=== PATIENT | female | born 1985 | race Caucasian/White ===

== ENCOUNTER → 2017-02-22 | Outpatient (CLI) | payer OTHER ==
[~2017-02-22] MED LIST: PRE NATAL VITAMINS PO
[2017-02-22 11:23] LABS: BASO % 0.6 % (0.0-1.0); EOS # 0.2 10*3/uL (0.0-0.4); EOS % 2.9 % (1.0-4.0); HEMATOCRIT 38.9 % (37.0-47.0); HEMOGLOBIN 13.2 g/dl (12.0-16.0); LYMPH # 1.8 10*3/uL (1.3-4.4); LYMPH % 29.1 % (27.0-41.0); MEAN CELL VOLUME 88.2 fl (81.0-99.0); MEAN CORPUSCULAR HGB 29.9 pg (27.0-31.0); MEAN CORPUSCULAR HGB CONC 33.9 g/dl (33.0-37.0); MONO # 0.4 10*3/uL (0.1-1.0); MONO % 7.1 % (3.0-9.0); NEUT # 3.7 10*3/uL (2.3-7.9); NEUT % 60.1 % (47.0-73.0); PLATELET COUNT AUTOMATED 332 10*3/uL (130-400); RED BLOOD COUNT 4.41 10*6/uL (4.10-5.10); RED CELL DISTRI WIDTH 12.4 % (0-14.5); WHITE BLOOD COUNT 6.2 10*3/uL (4.8-10.8)
[2017-02-22 11:56] LABS: PROTHROMBIN TIME 10.2 SECONDS (9.0-12.4)
== END | disposition home or self-care (01) ==
LOC: LAB 11:07
PROVIDERS: Specialist
DX: J35.01 Chronic tonsillitis (principal)

== ENCOUNTER → 2017-03-01 | Day surgery (SDC) | payer OTHER ==
[2017-03-01] VITALS (7 sets, daily range): BP systolic 130–146; BP diastolic 74–88
[~2017-03-01] VITALS: Ht 154.9 cm; Wt 103.4 kg
[~2017-03-01] MED LIST changes: +OXYCODONE H5 MG/5 ML PO
--- NOTE | ~2017-03-01 | O ---
[place], [place] OPERATIVE NOTE NAME: SHERMAN PRITCHARD UNIT #: [id number] ROOM: DOCTOR: ALEXANDRA ANTOINE MD BIRTHDATE: [birth year] DOS: 03/01/2017 PREOPERATIVE DIAGNOSIS: Chronic tonsillitis. POSTOPERATIVE DIAGNOSIS: Chronic tonsillitis. OPERATION PERFORMED: Bilateral tonsillectomy. SURGEON: Dr. Antoine. ANESTHESIA: General endotracheal. OPERATIVE PROCEDURE: Following induction of general endotracheal anesthesia, the patient was positioned supine on the OR table and draped in the standard fashion for tonsillectomy. The mouth was exposed using McIvor retractor. Bilateral tonsillectomy was performed with electrocautery. Minor bleeding was controlled with cautery. At the end of the case, all instrument and sponge counts were correct. Gastric contents were decompressed. The patient was awakened, extubated and transported to PACU in satisfactory condition. ALEXANDRA ANTOINE MD CM:OPRECORD:OPERATIVE NOTE [id number] 1224 ALEXANDRA ANTOINE MD 03/01/17 1224 interface
== END | disposition home or self-care (01) ==
LOC: LAB 02-22 10:09 → SDC 02-22 10:09 → LAB 02:47 → SDC 02:47 → LAB 10:15 → SDC 11:30
DX: J35.01 Chronic tonsillitis (principal); Z87.891 Personal history of nicotine dependence; Z90.721 Acquired absence of ovaries, unilateral; Z98.890 Other specified postprocedural states; Z82.49 Family history of ischemic heart disease and other diseases of the circulatory system